=== PATIENT | male | born 1950 | race African-American/Black ===

== ENCOUNTER 2020-02-17 11:43 | Outpatient (CLI) | payer MEDICARE, OTHER ==
--- NOTE | 2020-02-17 12:33 | RAD ---
EXAM: Single view of the chest HISTORY: Pleural effusion. Preoperative testing COMPARISON: 02/04/2020 FINDINGS: Single view of the chest shows a normal sized cardiomediastinal silhouette. There is a larg e right pleural effusion. There appears to be a right-sided chest tube. Increased mixed infiltrates are seen in the left lung which appear to have worsened compared to the prior exam. No acute osseous abnormality. IMPRESSION: 1. Large right pleural effusion 2. Worsening mixed multifocal left pulmonary infiltrates
[2020-02-17 14:25] LABS: #Eosinphils 0.2 thou/uL (0.0-0.7); #Lymphocytes 0.6 thou/uL (1.20-3.40); #Monocytes 0.4 thou/uL (0.11-0.59); #Neutrophils 4.4 thou/uL (1.40-6.50); %Basophils 0.4 % (0.0-1.0); %Eosinophils 3.8 % (0.0-10.0); %Lymphocytes 9.9 % (21.0-51.0); %Monocytes 7.1 % (0.0-10.0); %Neutrophils 78.7 % (42.0-75.0); Mean Corpuscular HGB CONC 31.5 g/dL (32.0-36.0); Mean Corpuscular Hemoglobin 29.1 pg (27.0-31.0); Mean Corpuscular Volume 92.2 fL (78.0-98.0); Mean Platelet Volume 7.7 fL (7.4-10.4); Platelet Count 503 thou/uL (130-400); RBC Distribution Width 11.8 % (11.5-14.5); Red Blood Cell (RBC) Count 5.15 mill/uL (4.70-6.10); White Blood Cell (WBC) Count 5.5 thou/uL (4.8-10.8)
[2020-02-17 14:46] LABS: Anion Gap 13 mmol/L (10-20); BUN (Urea Nitrogen) 11 mg/dL (8.4-25.7); Calc. Creatinine Clearance 0 mL/min (70-130); Calcium 9.2 mg/dL (7.8-10.44); Carbon Dioxide 31 mmol/L (23-31); Chloride 98 mmol/L (98-107); Estimated GFR-MDRD 84; Glucose 103 mg/dL (80-115); Potassium 4.9 mmol/L (3.5-5.1); Sodium 137 mmol/L (136-145)
[2020-02-18 12:53] LABS: SARS-CoV-2 MS2 Positive; SARS-CoV-2 N Gene Negative; SARS-CoV-2 S Gene Negative; SARS-CoV-2 by NAA Not Detected (NotDetected); SARS-CoV-2 orf1ab Negative
== END 2020-02-17 11:44 | disposition home or self-care (01) ==
LOC: LABBT 11:43
PROVIDERS: ATTEND Specialist
DX: Z01.818 Encounter for other preprocedural examination (principal); C34.90 Malignant neoplasm of unspecified part of unspecified bronchus or lung; Z20.828 Contact with and (suspected) exposure to other viral communicable diseases
CPT/HCPCS: 71045; 80048; 85025; 93005; U0003; 87635; 93010

== ENCOUNTER 2020-02-17 12:00 | Inpatient (IN) | payer MEDICARE, OTHER ==
[2020-02-17 16:08] VITALS: BMI 25.1
[2020-02-18] MEDS ORDERED: Lidocaine 1% PF 5 ML VIAL ONE (11:10)
[2020-02-18] MEDS ORDERED: PROPOFOL 200 MG/20 ML VIAL ONE (11:10)
[2020-02-18] MEDS ORDERED: Acetaminophen 500 MG TAB ONE (13:17)
[2020-02-18] MEDS ORDERED: Ketorolac Tromethamine 30 MG/ML VIAL ONE (13:18)
[2020-02-18] MEDS ORDERED: Bupivacaine 0.25% HCL 30 ML VIAL ONE (13:31)
[2020-02-18] MEDS ORDERED: Lidocaine 1% w/Epinephrine 1:100K 20 ML VIAL ONE (13:31)
[2020-02-18] MEDS ORDERED: Fentanyl 100 MCG/2 ML VIAL ONE (13:45)
--- NOTE | 2020-02-18 14:56 | RAD ---
EXAM: Single view of the chest HISTORY: Left Mediport placement COMPARISON: 02/17/2020 FINDINGS: Single view of the chest shows a normal sized cardiomediastinal silhouette. There is inter aditya placement of a left subclavian Mediport with its tip in the superior vena cava. No pneumothorax is appreciated. Increased interstitial lung markings are seen in the left chest. There is a large ri ght pleural effusion with a right-sided chest tube. No acute osseous abnormality. IMPRESSION: 1. Status post Mediport placement without evidence of complication 2. Large right pleural effusion 3. Diffuse increased interstitial disease in the left chest.
--- NOTE | 2020-02-19 13:33 | OP ---
DATE OF PROCEDURE: 02/18/2020 PREOPERATIVE DIAGNOSIS: Right colon cancer. POSTOPERATIVE DIAGNOSIS: Right colon cancer. PROCEDURE PERFORMED: Placement of left subclavian low-profile power compatible MediPort. ANESTHESIA: Total intravenous anesthesia with local using a mixture of 0.25% Marcaine and 1% lidocaine with epinephrine. DESCRIPTION OF OPERATION: Informed consent was obtained. The patient was taken to the operating room where total intravenous anesthesia was obtained with the patient in supine position. Shortly after the patient was taken to the operating room, Dr. 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 Left chest was prepped with ChloraPrep and draped in sterile fashion. Local anesthetic was infiltrated, and large gauge needle was passed under the clavicle and subclavian vein. Guidewire was passed the needle and fluoroscopically confirmed to enter the superior vena cava. Additional local anesthetic was infiltrated, and transverse incision was created based on needle insertion site. Subcutaneous pocket was dissected inferiorly. Introducer dilator was passed over the guidewire under fluoroscopic guidance. The catheter was passed through the introducer, and the introducer was removed in the usual peel-apart fashion. The catheter tip was positioned at the atriocaval junction. This actually proved to be a longer distance than typical. I am not sure certain this is because of changes brought about by his cancer, but I divided the catheter about 25 cm from the tip. This was attached to the locking hub of the port. The port was secured to pectoral fascia with 3-0 Prolene sutures. The wound was closed in layers with 3-0 and 4-0 Monocryl suture and Dermabond was placed externally. The port aspirated blood freely and was flushed with heparinized saline. Postprocedure chest x-ray shows good position of the port and catheter. There were no complications. The patient tolerated the procedure well. Job ID: [id number]
== END 2020-02-18 16:45 | disposition home or self-care (01) | DRG 982 ==
LOC: EDSTATUS 02-18 12:00 → SURG A 02-18 12:10
PROVIDERS: ADMIT Specialist; ATTEND Specialist
PROC: 0JH60WZ Insertion of Totally Implantable Vascular Access Device into Chest Subcutaneous Tissue and Fascia, Open Approach (ICD-10-PCS; principal; 2020-02-18)
PROC: 02HV33Z Insertion of Infusion Device into Superior Vena Cava, Percutaneous Approach (ICD-10-PCS; 2020-02-18)
DX: C34.91 Malignant neoplasm of unspecified part of right bronchus or lung (principal); C18.9 Malignant neoplasm of colon, unspecified; J91.0 Malignant pleural effusion; Z98.890 Other specified postprocedural states
CPT/HCPCS: 71045; C1788; J0690; J1642; J1885; J2704; J3010; S0020

== ENCOUNTER 2020-10-24 11:11 | Observation (INO) | payer MEDICARE, OTHER, SELFPAY ==
[2020-10-24 12:16] LABS: #Eosinphils 0.1 thou/uL (0.0-0.7); #Lymphocytes 0.9 thou/uL (1.20-3.40); #Monocytes 0.5 thou/uL (0.11-0.59); #Neutrophils 3.1 thou/uL (1.40-6.50); %Basophils 0.5 % (0.0-1.0); %Eosinophils 2.8 % (0.0-10.0); %Lymphocytes 18.9 % (21.0-51.0); %Monocytes 9.9 % (0.0-10.0); %Neutrophils 67.8 % (42.0-75.0); Hemoglobin 13.4 g/dL (14.0-18.0); Mean Corpuscular HGB CONC 30.8 g/dL (32.0-36.0); Mean Corpuscular Hemoglobin 28.4 pg (27.0-31.0); Mean Corpuscular Volume 92.2 fL (78.0-98.0); Mean Platelet Volume 6.7 fL (7.4-10.4); Platelet Count 424 thou/uL (130-400); RBC Distribution Width 12.5 % (11.5-14.5); White Blood Cell (WBC) Count 4.6 thou/uL (4.8-10.8)
[2020-10-24 12:39] LABS: ALT (SGPT) 9 U/L (8-55); AST (SGOT) 20 U/L (5-34); Alkaline Phosphatase 135 U/L (40-110); Anion Gap 13 mmol/L (10-20); BUN (Urea Nitrogen) 11 mg/dL (8.4-25.7); Bilirubin, Total 0.8 mg/dL (0.2-1.2); Calc. Creatinine Clearance 0 mL/min (70-130); Calcium 9.2 mg/dL (7.8-10.44); Carbon Dioxide 28 mmol/L (23-31); Chloride 101 mmol/L (98-107); Globulin 3.7 g/dL (2.4-3.5); Glucose 92 mg/dL (80-115); Potassium 4.4 mmol/L (3.5-5.1); Protein, Total 7.7 g/dL (5.8-8.1); Sodium 138 mmol/L (136-145)
[2020-10-24] MEDS ORDERED: VANCOMYCIN 1.75 GM/350 ML BAG 1.75 GM in Premix Bag 1 BAG IVPB SCH (13:00)
[2020-10-24] MEDS ORDERED: Vancomycin 1 GM in Premix Bag 1 BAG IVPB SCH (13:00)
[2020-10-24] MEDS ORDERED: Cefepime 2 GM VIAL ONE (13:11)
[2020-10-24] MEDS ORDERED: Acetaminophen 325 MG TAB PO PRN (14:13)
[2020-10-24] MEDS ORDERED: Guaifenesin DM 100-10/5 ML UDCUP PO PRN (14:13)
[2020-10-24] MEDS ORDERED: Ondansetron PF 4 MG/2 ML Vial IVP PRN (14:13)
[2020-10-24] MEDS ORDERED: Ondansetron ODT 4 MG TAB PO PRN (14:13)
[2020-10-24 17:39] VITALS: BMI 25.7
[2020-10-24] MEDS: Famotidine 20 MG TAB PO SCH (22:09)
[2020-10-24] MEDS: Sodium Chloride 0.45% 1,000 ML IV SCH (22:45)
[2020-10-25] MEDS: Cefepime 2 GM in Sodium Chloride 0.9% 100 ML IVPB SCH ×2 (00:02→14:00)
[2020-10-25 01:33] LABS: SARS-CoV-2 PCR by NAA Not Detected (NotDetected)
[2020-10-25 04:46] LABS: #Eosinphils 0.1 thou/uL (0.0-0.7); #Lymphocytes 0.6 thou/uL (1.20-3.40); #Monocytes 0.4 thou/uL (0.11-0.59); #Neutrophils 3.2 thou/uL (1.40-6.50); %Basophils 0.3 % (0.0-1.0); %Eosinophils 2.9 % (0.0-10.0); %Lymphocytes 14.2 % (21.0-51.0); %Monocytes 9.2 % (0.0-10.0); %Neutrophils 73.3 % (42.0-75.0); Hemoglobin 11.6 g/dL (14.0-18.0); Mean Corpuscular HGB CONC 31.4 g/dL (32.0-36.0); Mean Corpuscular Hemoglobin 29.2 pg (27.0-31.0); Mean Corpuscular Volume 92.7 fL (78.0-98.0); Mean Platelet Volume 7.1 fL (7.4-10.4); Platelet Count 354 thou/uL (130-400); RBC Distribution Width 12.3 % (11.5-14.5); Red Blood Cell (RBC) Count 3.97 mill/uL (4.70-6.10); White Blood Cell (WBC) Count 4.4 thou/uL (4.8-10.8)
[2020-10-25 05:06] LABS: Anion Gap 10 mmol/L (10-20); BUN (Urea Nitrogen) 9 mg/dL (8.4-25.7); Calc. Creatinine Clearance 81 mL/min (70-130); Calcium 8.3 mg/dL (7.8-10.44); Carbon Dioxide 25 mmol/L (23-31); Chloride 105 mmol/L (98-107); Glucose 102 mg/dL (80-115); Sodium 136 mmol/L (136-145)
[2020-10-25 08:35] VITALS: BP 138/84; TEMP 97.8
[2020-10-25] MEDS: Famotidine 20 MG TAB PO SCH (08:40)
[2020-10-25] MEDS ORDERED: Multivit, Chewable SF 1 TAB PO SCH (09:00)
[2020-10-25] MEDS ORDERED: Folic Acid 1 MG TAB PO SCH (09:00)
[2020-10-25] MEDS ORDERED: Cyanocobalamin (Vitamin B-12) 1,000 MCG TAB PO SCH (09:00)
[2020-10-25] MEDS ORDERED: Thiamine 100 MG TAB PO SCH (09:00)
[2020-10-25] MEDS ORDERED: Enoxaparin Sodium 40 MG/0.4 ML SYRINGE SC SCH (09:00)
[2020-10-25] MEDS ORDERED: Fentanyl 100 MCG/2 ML VIAL ONE (11:12)
[2020-10-25] MEDS ORDERED: Midazolam HCl 2 mg/2 ml Vial ONE (11:12)
[2020-10-25] MEDS ORDERED: PROPOFOL 200 MG/20 ML VIAL ONE (11:59)
[2020-10-25] MEDS ORDERED: VANCOMYCIN 1.75 GM/350 ML BAG 1.75 GM in Premix Bag 1 BAG IVPB SCH (14:00)
[2020-10-25] MEDS: Sodium Chloride 0.45% 1,000 ML IV SCH (17:09)
== END 2020-10-25 18:00 | disposition home or self-care (01) ==
LOC: ERS 11:11 → ONC 13:17
PROVIDERS: ADMIT Internal Medicine Critical Care Medicine; ATTEND Family Medicine
PROC: 0WP900Z Removal of Drainage Device from Right Pleural Cavity, Open Approach (ICD-10-PCS; principal; 2020-10-25)
DX: T85.698A Other mechanical complication of other specified internal prosthetic devices, implants and grafts, initial encounter (principal); C34.91 Malignant neoplasm of unspecified part of right bronchus or lung; C79.9 Secondary malignant neoplasm of unspecified site; I10 Essential (primary) hypertension; J18.9 Pneumonia, unspecified organism; F17.200 Nicotine dependence, unspecified, uncomplicated; F10.20 Alcohol dependence, uncomplicated; J90 Pleural effusion, not elsewhere classified; Z79.899 Other long term (current) drug therapy; Z20.822 Contact with and (suspected) exposure to COVID-19
CPT/HCPCS: 36415; 71045; 71260; 80048; 80053; 84484; 85025; 87040; 87070; 87205; 87635; 93005; 96365; 96366; 96367; 96376; G0378; J0692; J1642; J2250; J2704; J3010; J3370; J3490; U0003; U0005

== ENCOUNTER 2020-11-01 11:58 | Outpatient (CLI) | payer OTHER | END 2020-11-01 11:59 | disposition home or self-care (01) | LOC: PET 11:58 | PROVIDERS: ATTEND Internal Medicine Hematology & Oncology | DX: C34.01 Malignant neoplasm of right main bronchus (principal); R91.8 Other nonspecific abnormal finding of lung field | CPT/HCPCS: 78815; A9552 ==

== ENCOUNTER 2020-11-08 12:04 | Outpatient (CLI) | payer OTHER | END 2020-11-08 12:05 | disposition home or self-care (01) | LOC: ULT 12:04 | PROVIDERS: ATTEND Internal Medicine Hematology & Oncology | DX: Z51.11 Encounter for antineoplastic chemotherapy (principal); C34.01 Malignant neoplasm of right main bronchus; I67.82 Cerebral ischemia; R90.82 White matter disease, unspecified; I08.3 Combined rheumatic disorders of mitral, aortic and tricuspid valves | CPT/HCPCS: 70553; 93306 ==

== ENCOUNTER 2021-02-01 12:00 | Outpatient (CLI) | payer OTHER | END 2021-02-01 12:01 | disposition home or self-care (01) | LOC: ULT 12:00 | PROVIDERS: ATTEND Internal Medicine Hematology & Oncology | DX: Z51.11 Encounter for antineoplastic chemotherapy (principal); C34.01 Malignant neoplasm of right main bronchus; I67.82 Cerebral ischemia; I08.3 Combined rheumatic disorders of mitral, aortic and tricuspid valves; R90.89 Other abnormal findings on diagnostic imaging of central nervous system; Z79.899 Other long term (current) drug therapy | CPT/HCPCS: 70553; 93306 ==

== ENCOUNTER 2021-04-27 11:00 | Outpatient (CLI) | payer OTHER | END 2021-04-27 11:01 | disposition home or self-care (01) | LOC: PET 11:00 | PROVIDERS: ATTEND Internal Medicine Hematology & Oncology | DX: C34.01 Malignant neoplasm of right main bronchus (principal); R91.8 Other nonspecific abnormal finding of lung field | CPT/HCPCS: 78815; A9552 ==

== ENCOUNTER 2022-12-17 09:35 | Emergency (ER) | payer MEDICARE ==
[2022-12-17 10:18] LABS: #Basophils 0.1 thou/uL (0.0-0.2); #Eosinphils 0.2 thou/uL (0.0-0.7); #Monocytes 0.5 thou/uL (0.11-0.59); #Neutrophils 4.4 thou/uL (1.40-6.50); %Basophils 1.1 % (0.0-1.0); %Eosinophils 4.3 % (0.0-10.0); %Lymphocytes 7.6 % (21.0-51.0); %Monocytes 9.2 % (0.0-10.0); %Neutrophils 77.3 % (42.0-75.0); Hemoglobin 13.2 g/dL (14.0-18.0); Mean Corpuscular HGB CONC 32.5 g/dL (32.0-36.0); Mean Corpuscular Hemoglobin 28.3 pg (27.0-31.0); Mean Corpuscular Volume 86.9 fl (78.0-98.0); Platelet Count 375 10x3/uL (130-400); RBC Distribution Width 13.3 % (11.5-14.5); Red Blood Cell (RBC) Count 4.67 mill/uL (4.70-6.10); White Blood Cell (WBC) Count 5.6 10x3/uL (4.8-10.8)
[2022-12-17 10:47] LABS: ALT (SGPT) 9 U/L (8-55); AST (SGOT) 26 U/L (5-34); Albumin 4.2 g/dL (3.4-4.8); Alkaline Phosphatase 119 U/L (40-110); Anion Gap 16 mmol/L (10-20); BUN (Urea Nitrogen) 12 mg/dL (8.4-25.7); Bilirubin, Total 0.4 mg/dL (0.2-1.2); Calc. Creatinine Clearance 0 mL/min (70-130); Calcium 9.9 mg/dL (7.8-10.44); Carbon Dioxide 25 mmol/L (23-31); Chloride 101 mmol/L (98-107); Estimated GFR 56; Globulin 3.8 g/dL (2.4-3.5); Glucose 141 mg/dL (83-110); Magnesium 1.9 mg/dL (1.6-2.6); Potassium 4.6 mmol/L (3.5-5.1); Sodium 137 mmol/L (136-145)
[2022-12-17 11:42] LABS: Bilirubin Negative (Negative); Blood, Urine Negative (Negative); CAUTI Indications for Culture Pelvic or flank pain; Clarity Clear (Clear); Glucose, Urine (Dipstick) Normal (Negative); Ketone, Urine Trace mg/dL (Negative); Leukocyte 75 Leu/uL (Negative); Nitrite Negative (Negative); Protein, Urine (Dipstick) 70 mg/dL (Neg-Trace); RBC/HPF 0-3 HPF (0-3); Urobilinogen 3 mg/dL (Less than 2); pH, Urine 5.5 (5.0-9.0)
[2022-12-17 11:43] LABS: Bacteria/HPF 1+ HPF (None Seen); Specific Gravity, Urine 1.046 (1.002-1.036)
[2022-12-17 11:45] LABS: Urine Culture Reflex No No
== END 2022-12-17 14:49 | disposition home or self-care (01) ==
LOC: ERS 09:35
DX: C78.01 Secondary malignant neoplasm of right lung (principal); M84.48XA Pathological fracture, other site, initial encounter for fracture; I10 Essential (primary) hypertension; F17.200 Nicotine dependence, unspecified, uncomplicated
CPT/HCPCS: 71045; 72131; 80053; 81001; 83735; 84443; 84484; 85025; 93005

== ENCOUNTER 2023-01-01 12:48 | Inpatient (IN) | payer MEDICARE ==
[~2023-01-01 12:48] MED LIST: Iopamidol-370 76% 500 ML MDV (1 ML CHARGE) ONE
[2023-01-01 13:30] LABS: #Eosinphils 0.1 thou/uL (0.0-0.7); #Monocytes 0.4 thou/uL (0.11-0.59); #Neutrophils 5.6 thou/uL (1.40-6.50); %Basophils 0.6 % (0.0-1.0); %Lymphocytes 5.4 % (21.0-51.0); %Monocytes 5.8 % (0.0-10.0); %Neutrophils 85.9 % (42.0-75.0); Hemoglobin 13.2 g/dL (14.0-18.0); Mean Corpuscular HGB CONC 30.9 g/dL (32.0-36.0); Mean Corpuscular Hemoglobin 27.5 pg (27.0-31.0); Mean Platelet Volume 9.8 fL (7.4-10.4); Platelet Count 395 10x3/uL (130-400); RBC Distribution Width 13.3 % (11.5-14.5); White Blood Cell (WBC) Count 6.5 10x3/uL (4.8-10.8)
[2023-01-01 13:51] LABS: ALT (SGPT) Less than 7 U/L (8-55); AST (SGOT) 21 U/L (5-34); Albumin 4.3 g/dL (3.4-4.8); Alkaline Phosphatase 125 U/L (40-110); Anion Gap 20 mmol/L (10-20); BUN (Urea Nitrogen) 13 mg/dL (8.4-25.7); Bilirubin, Total 0.8 mg/dL (0.2-1.2); Calc. Creatinine Clearance 0 mL/min (70-130); Calcium 10.2 mg/dL (7.8-10.44); Carbon Dioxide 25 mmol/L (23-31); Chloride 97 mmol/L (98-107); Estimated GFR 67; Globulin 3.5 g/dL (2.4-3.5); Glucose 103 mg/dL (83-110); Potassium 4.4 mmol/L (3.5-5.1); Protein, Total 7.8 g/dL (5.8-8.1); Sodium 138 mmol/L (136-145)
[2023-01-01 15:39] LABS: Bacteria/HPF None Seen HPF (None Seen); Bilirubin 1+ (Negative); Blood, Urine Negative (Negative); CAUTI Indications for Culture Dysuria,urgency,freq; Clarity Clear (Clear); Glucose, Urine (Dipstick) Normal (Negative); Ketone, Urine 40 mg/dL (Negative); Leukocyte 25 Leu/uL (Negative); Nitrite Negative (Negative); Protein, Urine (Dipstick) 30 mg/dL (Neg-Trace); RBC/HPF None Seen HPF (0-3); Specific Gravity, Urine 1.032 (1.002-1.036); Squamous Epithelial 0-3 HPF (0-3); pH, Urine 5.5 (5.0-9.0)
[2023-01-01 15:45] LABS: Urine Culture Reflex No No
[2023-01-01] MEDS ORDERED: Ondansetron PF 4 MG/2 ML Vial IVP PRN (17:46)
[2023-01-01 18:40] VITALS: BMI 25.2
[2023-01-01] MEDS: cefTRIAXone\\ROCEPHIN 1 GM in Sodium Chloride 0.9% 100 ML IVPB SCH (20:00)
[2023-01-01] MEDS ORDERED: Bisacodyl 10 MG SUPP PR SCH (21:00)
[2023-01-01] MEDS: Polyethylene Glycol 3350 17 GM Packet PO SCH (22:00)
[2023-01-01] MEDS: Senokot S 8.6-50 MG TAB PO SCH (22:01)
[2023-01-02] MEDS: HYDROcodone/Acetaminophen 10/325 mg Tablet PO PRN ×3 (00:55→18:07)
[2023-01-02 04:37] LABS: #Eosinphils 0.2 thou/uL (0.0-0.7); #Monocytes 0.6 thou/uL (0.11-0.59); #Neutrophils 4.2 thou/uL (1.40-6.50); %Basophils 0.4 % (0.0-1.0); %Lymphocytes 7.9 % (21.0-51.0); %Monocytes 10.5 % (0.0-10.0); %Neutrophils 77.8 % (42.0-75.0); Hemoglobin 11.2 g/dL (14.0-18.0); Mean Corpuscular HGB CONC 32.3 g/dL (32.0-36.0); Mean Corpuscular Hemoglobin 28.1 pg (27.0-31.0); Mean Corpuscular Volume 87.2 fl (78.0-98.0); Mean Platelet Volume 10.2 fL (7.4-10.4); Platelet Count 310 10x3/uL (130-400); RBC Distribution Width 13.3 % (11.5-14.5); Red Blood Cell (RBC) Count 3.98 mill/uL (4.70-6.10); White Blood Cell (WBC) Count 5.4 10x3/uL (4.8-10.8)
[2023-01-02 05:04] LABS: Anion Gap 15 mmol/L (10-20); BUN (Urea Nitrogen) 11 mg/dL (8.4-25.7); Calc. Creatinine Clearance 75 mL/min (70-130); Calcium 9.2 mg/dL (7.8-10.44); Carbon Dioxide 28 mmol/L (23-31); Chloride 98 mmol/L (98-107); Estimated GFR 77; Glucose 99 mg/dL (83-110); Potassium 3.8 mmol/L (3.5-5.1); Sodium 137 mmol/L (136-145)
[2023-01-02] MEDS: Senokot S 8.6-50 MG TAB PO SCH ×2 (09:10→20:48)
[2023-01-02] MEDS ORDERED: Bisacodyl 10 MG SUPP PR PRN (11:39)
[2023-01-02] MEDS ORDERED: Fleet Saline Enema 133 ML BOT PR PRN (11:40)
[2023-01-02] MEDS ORDERED: Milk Of Magnesia 30 ML UDCUP PO PRN (11:42)
[2023-01-02] MEDS ORDERED: Methylnaltrexone 12 MG/0.6 ML VIAL SC SCH (11:45)
[2023-01-02] MEDS: Bisacodyl 10 MG SUPP PR SCH ×2 (18:00→18:05)
[2023-01-02] MEDS: Apixaban 5 MG TAB PO SCH (20:48)
[2023-01-02] MEDS: Polyethylene Glycol 3350 17 GM Packet PO SCH (20:48)
[2023-01-02] MEDS: cefTRIAXone\\ROCEPHIN 1 GM in Sodium Chloride 0.9% 100 ML IVPB SCH (20:49)
[2023-01-03] MEDS: HYDROcodone/Acetaminophen 10/325 mg Tablet PO PRN (04:44)
[2023-01-03 05:05] LABS: #Eosinphils 0.1 thou/uL (0.0-0.7); #Monocytes 0.5 thou/uL (0.11-0.59); #Neutrophils 4.7 thou/uL (1.40-6.50); %Basophils 0.4 % (0.0-1.0); %Eosinophils 2.3 % (0.0-10.0); %Lymphocytes 6.2 % (21.0-51.0); %Neutrophils 82.7 % (42.0-75.0); Hemoglobin 11.7 g/dL (14.0-18.0); Mean Corpuscular HGB CONC 31.5 g/dL (32.0-36.0); Mean Corpuscular Hemoglobin 27.9 pg (27.0-31.0); Mean Corpuscular Volume 88.8 fl (78.0-98.0); Mean Platelet Volume 9.9 fL (7.4-10.4); Platelet Count 288 10x3/uL (130-400); RBC Distribution Width 13.5 % (11.5-14.5); Red Blood Cell (RBC) Count 4.19 mill/uL (4.70-6.10); White Blood Cell (WBC) Count 5.6 10x3/uL (4.8-10.8)
[2023-01-03 05:27] LABS: Anion Gap 16 mmol/L (10-20); BUN (Urea Nitrogen) 9 mg/dL (8.4-25.7); Calc. Creatinine Clearance 77 mL/min (70-130); Calcium 9.6 mg/dL (7.8-10.44); Carbon Dioxide 26 mmol/L (23-31); Chloride 99 mmol/L (98-107); Estimated GFR 79; Glucose 111 mg/dL (83-110); Potassium 3.9 mmol/L (3.5-5.1); Sodium 137 mmol/L (136-145)
[2023-01-03] MEDS: Senokot S 8.6-50 MG TAB PO SCH ×2 (09:09→20:31)
[2023-01-03] MEDS: Apixaban 5 MG TAB PO SCH ×2 (09:09→20:30)
[2023-01-03] MEDS ORDERED: Acetaminophen 325 MG TAB PO PRN (11:52)
[2023-01-03] MEDS ORDERED: Sodium Chloride 0.9% 250 ML IV SCH (13:15)
[2023-01-03] MEDS: cefTRIAXone\\ROCEPHIN 1 GM in Sodium Chloride 0.9% 100 ML IVPB SCH (19:51)
[2023-01-03] MEDS: Polyethylene Glycol 3350 17 GM Packet PO SCH (20:30)
[2023-01-04 07:50] VITALS: TEMP 97.9
[2023-01-04] MEDS: Senokot S 8.6-50 MG TAB PO SCH (08:37)
[2023-01-04] MEDS: Apixaban 5 MG TAB PO SCH (08:38)
[2023-01-04 11:06] VITALS: BP 123/81
== END 2023-01-04 15:10 | disposition home or self-care (01) | DRG 176 ==
LOC: ERS 12:48 → 2NO 16:26
PROVIDERS: ADMIT Internal Medicine; ATTEND Emergency Medicine
DX: I26.99 Other pulmonary embolism without acute cor pulmonale (principal); C34.91 Malignant neoplasm of unspecified part of right bronchus or lung; C79.51 Secondary malignant neoplasm of bone; N39.0 Urinary tract infection, site not specified; I50.42 Chronic combined systolic (congestive) and diastolic (congestive) heart failure; M48.56XA Collapsed vertebra, not elsewhere classified, lumbar region, initial encounter for fracture; M48.54XA Collapsed vertebra, not elsewhere classified, thoracic region, initial encounter for fracture; C79.89 Secondary malignant neoplasm of other specified sites; J91.0 Malignant pleural effusion; K59.03 Drug induced constipation; T40.605A Adverse effect of unspecified narcotics, initial encounter; I11.0 Hypertensive heart disease with heart failure; G89.29 Other chronic pain; M54.50 Low back pain, unspecified; F17.200 Nicotine dependence, unspecified, uncomplicated; E27.8 Other specified disorders of adrenal gland; Z79.899 Other long term (current) drug therapy; Z98.890 Other specified postprocedural states; R53.81 Other malaise
CPT/HCPCS: 36415; 71045; 71275; 74177; 80048; 80053; 81001; 83880; 84145; 84484; 85025; 87086; 93005; 96372; J0696; J1650; J2212; J3490; J7030; Q9967

== ENCOUNTER 2023-02-07 09:36 | Outpatient (CLI) | payer OTHER | END 2023-02-07 09:37 | disposition home or self-care (01) | LOC: MRI 09:36 | PROVIDERS: ATTEND Internal Medicine Hematology & Oncology | DX: C34.01 Malignant neoplasm of right main bronchus (principal); G93.9 Disorder of brain, unspecified; I67.82 Cerebral ischemia; R90.89 Other abnormal findings on diagnostic imaging of central nervous system | CPT/HCPCS: 70553 ==